=== PATIENT | male | born 1945 | race Caucasian/White ===

== ENCOUNTER 2024-10-02 15:17 | Observation (INO) ==
[2024-10-02 15:51] LABS: Hematocrit (blood only) 40.7 % (42.0-52.0); Hemoglobin 14.3 g/dl (14.0-18.0); Immature Granulocytes # (auto) 0.02 K/uL (0.01-0.20); Immature Granulocytes % (auto) 0.2 %; Mean Corpuscular Hemoglobin 32.3 pg (25.0-34.0); Mean Corpuscular Volume 91.9 fL (80.0-100.0); Platelet Count 168 K/uL (130-400); RDW Standard Deviation 46.4 fL (36.4-46.3); Red Blood Count 4.43 M/uL (4.70-6.10); White Blood Count 8.83 K/ul (4.8-10.8)
--- NOTE | 2024-10-02 15:55 | Emergency Department Note ---
Impression & Plan Hypoxia, Fall, SOB (shortness of breath), Pneumonia, Chest wall contusion, Fracture of thoracic spine ED Provider Note NAME: WINIFRED CAREY AGE: 78 SEX: M : 1945 ARRIVES VIA: Walk-In INFORMANT: [Patient] ED PROVIDER(S): [Wisam Marshall MD] CHIEF COMPLAINT: Short of breath HISTORY OF PRESENT ILLNESS: The patient is a 78-year-old male who states that he fell off a 3-step stepstool onto his right side 2 days ago. He was seen in the ED and plain rib x-rays were unremarkable. Patient has been using some pain pills as prescribed. He states that he has noticed a lot of pain in the right ribs and also the mid upper back. In the last 24 hours, he has noted some shortness of breath and chills and maybe a low-grade fever. There has been no cough, no stuffy nose, he does urinate frequently, no burning with urination. He does not have any abdominal pain. He has not noticed any rash. As he was not feeling better, as he was feeling a bit short of breath, he presents for evaluation. Of note, he is not on blood thinning agents. PMHx/PSHx/Social Hx: See Below PHYSICAL EXAM: Primary Survey Airway: Intact Breathing: Breath sounds equal bilaterally. No respiratory distress Circulation: Skin warm, capillary refill less than 2 seconds Disability: Pupils equal and reactive to light Motor Function: Moves all extremities. Sensory: No deficits Secondary Survey GEN: Well developed and well-nourished HEAD: Normocephalic, atraumatic EYES: Pupils round and reactive to light, conjunctiva clear, extraocular movements intact ENT: No fluid in external acoustic canals, nares patent, oropharynx clear NECK: Midline trachea, no cervical spine tenderness HEART: Regular rate and rhythm LUNGS: Clear to auscultation bilaterally but diminished bilaterally. CHEST: Tender to the right lateral chest wall, no contusion or crepitus. ABD: No contusions, soft, non-tender, no distention PELVIS: Stable to rock BACK: No step offs or deformities, T-L spine non tender EXT: Moving all extremities well, no gross deformities NEURO: No focal motor deficits, no sensory deficits DIFFERENTIAL DIAGNOSIS: Bacteremia or sepsis, pneumonia, UTI, rib fracture, thoracic or lumbar spine fracture, among others. EMERGENCY DEPARTMENT PROCEDURES: C-spine clinically cleared at the time of my initial assessment, 1544. MEDICAL DECISION MAKING: There is no leukocytosis or concerning anemia. There is a normal platelet count. No coagulopathy. No renal failure or significant electrolyte abnormality. Lactic acid level is not elevated making sepsis less likely. There is no concerning liver enzyme elevation. ECG shows a sinus rhythm, no ischemia. Cardiac enzyme testing x 1 is not consistent with acute cardiac injury. Urinalysis shows some dehydration, no infection. COVID, influenza and RSV test were negative. Chest x-ray shows some potential atelectasis or pneumonia at both bases. Chest CT does not show any rib fracture. There was no pneumothorax. There was a osteophyte fracture of T9. There was congestion at both bases of the lungs. Abdominal and pelvis CT did not show any acute intra- abdominal traumatic process. Thoracic and lumbar spine CTs showed the same T9 osteophyte fracture. On exam, the patient seemed fatigued. He was febrile. Eventually, his O2 saturation dropped to below 90%, he required O2 supplementation. Patient received IV saline for hydration. He was given IV Tylenol for his fever and for pain. He was given a DuoNeb to help with his breathing. He received IV ceftriaxone as empiric antibiotic coverage. Given the hypoxia, given his fever, given the worsening of his condition compared to a few days ago, I do think admission is warranted. He cannot be discharged hypoxic. I did speak with the patient and case management, the on-call hospitalist was consulted. In short, I suspect the patient has early pneumonia, possibly as a complication of his chest trauma. Prior/Outside records/notes reviewed: Previous ED visit note describing his presentation, findings and plan outpatient. ECG per my interpretation: Indication was possible sepsis. The ECG shows a normal sinus rhythm with a rate of 93. There is an incomplete right bundle branch block. There is potential old inferior infarct. There is no ST elevation, no PVCs. QTc is 432. Continuous Cardiac Monitoring per my interpretation: An order was placed for continuous cardiac monitoring. The monitor shows a rate of 89 with normal sinus rhythm. Imaging/x-ray results per my interpretation: Chest x-ray shows congestion at both bases consistent with either atelectasis or pneumonia. There was no pneumothorax. No obvious acute intrathoracic traumatic process. Chronic Medical/Social conditions affecting care: Advanced age. Care/Management discussed with: Case management, the on-call hospitalist. Level of care consideration(s): After review of the information above and other included data: --I believe the patient requires escalation of care to admission DISPOSITION: Admission Past Med/Surg History Problem List (Updated 10/02/24 @ 18:10 by Wisam Marshall MD) Fracture of thoracic spine (Acute) Chest wall contusion (Acute) Pneumonia (Acute) SOB (shortness of breath) (Acute) Fall (Acute) Hypoxia (Acute) Hypoxia Coronary artery disease Fall (Acute) Rib pain on right side (Acute) GERD (gastroesophageal reflux disease) (Chronic) Medical History Chest pain Depression Myocardial infarction "S/P 3 stents in 2009, in [place] CAD is caused by exposure to agent orange in [place] " Broken ribs Separation of AC joint, type 1 Primary osteoarthritis, right shoulder No pertinent past medical history Surgical History (Updated 10/02/24 @ 18:06 by FRANKLIN Perez) H/O hernia repair S/P cataract surgery H/O knee surgery History of coronary artery stent placement Social History Smoking Status: Never smoker Preferred Language: Sami Communication Ability: Effective Feels Safe at Home: Yes Allergies Allergies Allergy/AdvReac Type Severity Reaction Status Date / Time tramadol AdvReac Intermediate DIARHHEA Verified 02/19/15 12:01 morphine AdvReac Unknown HALLUCINATI Verified 02/19/15 12:01 ONS Home Meds Home Medications Medication Instructions Recorded Confirmed ASPIRIN (ASPIRIN 81) 81 mg PO DAILY ##0 02/19/15 COENZYME Q10 (UBIDECARENONE) 1 cap PO DAILY ##0 02/19/15 (CO-ENZYME Q10) Citalopram (Citalopram 20 mg PO DAILY ##0 02/19/15 Hydrobromide) Multiple Vitamin (Multi Vitamin 1 tab PO DAILY ##0 02/19/15 Daily) OMEGA-3 FATTY ACIDS (FISH OIL) 1 cap PO DAILY ##0 02/19/15 PRAVASTATIN SODIUM (PRAVACHOL) 20 mg PO DAILY #0 tabs 02/19/15 Previous Rx's Medication Instructions Recorded Lactobacillus Acidophilus 1 tab PO TIDM 90 days #270 tabs 02/20/15 (Floranex) OMEPRAZOLE 40 mg PO BID 90 days #90 tabs 02/20/15 Results & Data (ED) Vital Signs Vital Signs - 24 hr 10/02/24 15:21 10/02/24 15:44 10/02/24 15:44 Temperature 37.7 C H Temperature Source Skin Pulse Rate 107 H 95 H Pulse Rhythm Regular Respiratory Rate 20 16 Respiratory Effort / Characteristics Non-Labored Spontaneous Respiratory Depth Normal Respiratory Pattern Regular Blood Pressure 124/71 Blood Pressure Mean 88 Blood Pressure Position Sitting Pulse Oximetry 94 93 93 Oxygen Delivery Method Room Air Room Air Room Air Oxygen Flow Rate 0 Sepsis Recent Fever Within 48 Hours No Sepsis New/Unexplained Change in Mental Status N/A Sepsis Action Taken by Nursing No Action Required Oxygen Flow Rate - Titration Pulse Oximetry Post Tiitration 10/02/24 16:17 10/02/24 17:13 10/02/24 17:22 Temperature Temperature Source Pulse Rate 89 83 Pulse Rhythm Respiratory Rate 16 Respiratory Effort / Characteristics Respiratory Depth Respiratory Pattern Blood Pressure 142/67 H Blood Pressure Mean 92 Blood Pressure Position Pulse Oximetry 92 88 L Oxygen Delivery Method Room Air Room Air Oxygen Flow Rate 0 Sepsis Recent Fever Within 48 Hours Sepsis New/Unexplained Change in Mental Status Sepsis Action Taken by Nursing Oxygen Flow Rate - Titration 2 Pulse Oximetry Post Tiitration 93 10/02/24 17:27 Temperature Temperature Source Pulse Rate 81 Pulse Rhythm Respiratory Rate 18 Respiratory Effort / Characteristics Respiratory Depth Respiratory Pattern Blood Pressure 123/67 Blood Pressure Mean 85 Blood Pressure Position Pulse Oximetry 92 Oxygen Delivery Method Nasal Cannula Oxygen Flow Rate 2 Sepsis Recent Fever Within 48 Hours Sepsis New/Unexplained Change in Mental Status Sepsis Action Taken by Nursing Oxygen Flow Rate - Titration Pulse Oximetry Post Tiitration Home Medications Current Medication List: was personally reviewed by me Laboratory Data Attestation: I reviewed the patient's lab results. 10/02/24 15:38 10/02/24 15:38 Lab Results 10/02/24 10/02/24 10/02/24 Range/Units 15:38 15:55 16:10 WBC 8.83 (4.8-10.8) K/ul RBC 4.43 L (4.70-6.10) M/uL Hgb 14.3 (14.0-18.0) g/dl Hct 40.7 L (42.0-52.0) % MCV 91.9 (80.0-100.0) fL MCH 32.3 (25.0-34.0) pg MCHC 35.1 (32.0-36.0) g/dL RDW Std Deviation 46.4 H (36.4-46.3) fL RDW Coeff of Nelida 13.6 (11.5-14.5) % Plt Count 168 (130-400) K/uL MPV 9.2 L (9.4-12.4) fL Immature Gran % (Auto) 0.2 % Neut % (Auto) 77.2 % Lymph % (Auto) 12.1 % [place] % (Auto) 6.7 % Eos % (Auto) 3.5 % Baso % (Auto) 0.3 % Neut # (Auto) 6.81 H (1.40-6.50) K/uL Lymph # (Auto) 1.07 L (1.20-3.40) K/uL [place] # (Auto) 0.59 (0.11-0.59) K/uL Eos # (Auto) 0.31 (0.00-0.50) K/uL Baso # (Auto) 0.03 (0.00-0.20) K/uL Immature Gran # (Auto) 0.02 (0.01-0.20) K/uL PT 11.3 (9.0-12.0) Seconds INR 1.0 (0.9-1.1) APTT 29 (21-31) Seconds PTT Ratio 1.1 Sodium 136 (136-145) mmol/L Potassium 3.9 (3.5-5.1) mmol/L Chloride 104 (98-107) mmol/L Carbon Dioxide 23 (21-32) mmol/L Anion Gap 9 (3-11) BUN 20 (6-23) mg/dl Creatinine 0.99 (0.6-1.4) mg/dl Est Cr Clr Drug Dosing 64.5 ml/min eGFR 78.46 BUN/Creatinine Ratio 20.2 H (10-20) Glucose 110 H (70-99(Fasting)) mg/dl Lactate 1.5 (0.4-2.0) mmol/L Calcium 9.0 (8.6-10.3) mg/dl Magnesium 2.0 (1.7-2.4) mg/dl Total Bilirubin 1.1 H (0.2-1.0) mg/dl Direct Bilirubin 0.2 (0-0.2) mg/dl AST 20 (13-39) U/L ALT 14 (7-52) U/L Alkaline Phosphatase 67 (34-104) U/L Troponin I High Sens 10.2 (0-20) pg/ml Total Protein 7.2 (6.0-8.3) gm/dl Albumin 4.2 (3.4-5.0) gm/dl Procalcitonin 0.07 (0-0.5) ng/ml Urine Color Urine Appearance (Clear) Urine pH (4.5-7.5) Ur Specific [place] (1.000-1.030) Urine Protein (Negative) Urine Glucose (UA) (Negative) Urine Ketones (Negative) Urine Blood (Negative) Urine Nitrite (Negative) Urine Bilirubin (Negative) Urine Urobilinogen (Negative) Ur Leukocyte Esterase (Negative) Urine Comment SARS-CoV-2 (PCR) NEGATIVE (Negative) Influenza Type A (PCR) Negative (Neg) Influenza Type B (PCR) Negative (Neg) RSV (RT-PCR) Negative (Neg) 10/02/24 Range/Units 17:30 WBC (4.8-10.8) K/ul RBC (4.70-6.10) M/uL Hgb (14.0-18.0) g/dl Hct (42.0-52.0) % MCV (80.0-100.0) fL MCH (25.0-34.0) pg MCHC (32.0-36.0) g/dL RDW Std Deviation (36.4-46.3) fL RDW Coeff of Nelida (11.5-14.5) % Plt Count (130-400) K/uL MPV (9.4-12.4) fL Immature Gran % (Auto) % Neut % (Auto) % Lymph % (Auto) % [place] % (Auto) % Eos % (Auto) % Baso % (Auto) % Neut # (Auto) (1.40-6.50) K/uL Lymph # (Auto) (1.20-3.40) K/uL [place] # (Auto) (0.11-0.59) K/uL Eos # (Auto) (0.00-0.50) K/uL Baso # (Auto) (0.00-0.20) K/uL Immature Gran # (Auto) (0.01-0.20) K/uL PT (9.0-12.0) Seconds INR (0.9-1.1) APTT (21-31) Seconds PTT Ratio Sodium (136-145) mmol/L Potassium (3.5-5.1) mmol/L Chloride (98-107) mmol/L Carbon Dioxide (21-32) mmol/L Anion Gap (3-11) BUN (6-23) mg/dl Creatinine (0.6-1.4) mg/dl Est Cr Clr Drug Dosing ml/min eGFR BUN/Creatinine Ratio (10-20) Glucose (70-99(Fasting)) mg/dl Lactate (0.4-2.0) mmol/L Calcium (8.6-10.3) mg/dl Magnesium (1.7-2.4) mg/dl Total Bilirubin (0.2-1.0) mg/dl Direct Bilirubin (0-0.2) mg/dl AST (13-39) U/L ALT (7-52) U/L Alkaline Phosphatase (34-104) U/L Troponin I High Sens (0-20) pg/ml Total Protein (6.0-8.3) gm/dl Albumin (3.4-5.0) gm/dl Procalcitonin (0-0.5) ng/ml Urine Color Dark Yellow Urine Appearance Clear (Clear) Urine pH 5.0 (4.5-7.5) Ur Specific [place] 1.035 H (1.000-1.030) Urine Protein Negative (Negative) Urine Glucose (UA) Negative (Negative) Urine Ketones 1+ H (Negative) Urine Blood Negative (Negative) Urine Nitrite Negative (Negative) Urine Bilirubin Negative (Negative) Urine Urobilinogen Negative (Negative) Ur Leukocyte Esterase Negative (Negative) Urine Comment SARS-CoV-2 (PCR) (Negative) Influenza Type A (PCR) (Neg) Influenza Type B (PCR) (Neg) RSV (RT-PCR) (Neg) Administered Medications Ceftriaxone Sodium (Rocephin) 2,000 mg in 50 mls @ 100 mls/hr IV NOW STA Stop: 10/02/24 18:06 Last Admin: 10/02/24 17:48 Dose: 100 mls/hr Documented By: ARS Discontinued Medications Albuterol (Albut/Ipratrop 3mg/0.5mg Neb 3 Ml Vial) 3 ml NEB NOW STA; Protocol Stop: 10/02/24 17:38 Last Admin: 10/02/24 17:47 Dose: 3 ml Documented By: ARS Acetaminophen (Ofirmev) 1,000 mg in 100 mls @ 400 mls/hr IV NOW STA Stop: 10/02/24 16:03 Last Infusion: 10/02/24 16:37 Dose: Infused Documented By: Admin: 10/02/24 16:11 Dose: 400 mls/hr Documented By: ANT Sodium Chloride (Nss) 1,000 mls @ 999 mls/hr IV .Q1H1M ONE Stop: 10/02/24 16:49 Last Infusion: 10/02/24 17:23 Dose: Infused Documented By: Admin: 10/02/24 16:11 Dose: 999 mls/hr Documented By: ANT Ioversol (Optiray 320 100ml) 93 ml IV ONCE ONE Stop: 10/02/24 16:50 Last Admin: 10/02/24 16:51 Dose: 93 ml Documented By: EAB Imaging Data Radiologist's Impression: Chest X-Ray 10/02/24 15:38 Chest radiograph, one view History: Sepsis Comparison: 02/20/2015 Findings: Single AP view of the chest performed. No focal consolidation or pleural effusion. No pneumothorax. The cardiomediastinal silhouette is within normal limits. Normal pulmonary vascularity. No evidence for lymphadenopathy. No visualized bony or soft tissue abnormality. Impression: Normal chest radiograph Electronically signed by Joel Sam 10-02-2024 4:36 PM Abdomen/Pelvis CT 10/02/24 15:49 EXAMINATION: CT of the chest, abdomen and pelvis, and the thoracic and lumbar spine performed after the administration of IV contrast TECHNIQUE: Helical CT images from the lung apices through the symphysis pubis were obtained with contrast. Coronal and sagittal reformatted images were generated at a workstation for further assessment. Dose reduction techniques were achieved by using automatic exposure control and/or adjustment of mA and/or kV according to patient size and/or use of iterative reconstruction technique. COMPARISON: None HISTORY: Trauma FINDINGS: Lines and tubes: None Mediastinum/Neck Base: No thyroid nodules. Central tracheobronchial tree is patent. Heart size is normal. No pericardial effusion. Normal thoracic vasculature. No thoracic lymphadenopathy. Lungs: No consolidation. No pleural effusion or pneumothorax. Mild basilar and peripheral interstitial changes, without honeycombing, suggesting interstitial lung disease. Liver: No suspicious liver lesions. Portal veins appear patent. Gallbladder: Small layering calcified gallstones. No evidence of acute cholecystitis. Spleen: Normal size. Pancreas: No suspicious pancreatic lesions. The pancreatic duct is not dilated. Adrenal glands: No adrenal nodules. Kidneys: No hydronephrosis or obstructing renal stones. Bladder / Pelvic organs: The prostate gland is enlarged, with a transverse diameter of 6.7 cm.. Bowel: No bowel obstruction. No abnormal bowel wall thickening. The appendix is not definitely seen. Left colonic diverticulosis without diverticulitis. The cecum appears displaced into the left mid abdomen, suggesting a mobile cecum. Lymph nodes: No retroperitoneal, mesenteric, or pelvic lymphadenopathy. Peritoneum / Retroperitoneum: No free fluid or air within the abdomen. Vessels: No infrarenal aortic aneurysm. Moderate aortoiliac calcification. Bones and soft tissues: Degenerative changes of the spine. At the T9 level, there is a thin, horizontally oriented fracture line extending through the anterior vertebral body cortex, involving a partially circumferential osteophyte. No visualized further extension into the mid or posterior vertebral body. No fracture or traumatic subluxation of the lumbar spine. There are prominent anterior bridging osteophytes. Severe L5-S1 degenerative disc height loss. IMPRESSION: 1. A thin fracture line extends horizontally across a partially circumferential osteophyte of the T9 vertebral body. There is no extension into the mid or posterior vertebral body. 2. No other acute finding the chest, abdomen or pelvis, or of the lumbar spine. 3. 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 Electronically signed by Joel Sam 10-02-2024 5:[address] 10/02/24 15:49 EXAMINATION: CT of the chest, abdomen and pelvis, and the thoracic and lumbar spine performed after the administration of IV contrast TECHNIQUE: Helical CT images from the lung apices through the symphysis pubis were obtained with contrast. Coronal and sagittal reformatted images were generated at a workstation for further assessment. Dose reduction techniques were achieved by using automatic exposure control and/or adjustment of mA and/or kV according to patient size and/or use of iterative reconstruction technique. COMPARISON: None HISTORY: Trauma FINDINGS: Lines and tubes: None Mediastinum/Neck Base: No thyroid nodules. Central tracheobronchial tree is patent. Heart size is normal. No pericardial effusion. Normal thoracic vasculature. No thoracic lymphadenopathy. Lungs: No consolidation. No pleural effusion or pneumothorax. Mild basilar and peripheral interstitial changes, without honeycombing, suggesting interstitial lung disease. Liver: No suspicious liver lesions. Portal veins appear patent. Gallbladder: Small layering calcified gallstones. No evidence of acute cholecystitis. Spleen: Normal size. Pancreas: No suspicious pancreatic lesions. The pancreatic duct is not dilated. Adrenal glands: No adrenal nodules. Kidneys: No hydronephrosis or obstructing renal stones. Bladder / Pelvic organs: The prostate gland is enlarged, with a transverse diameter of 6.7 cm.. Bowel: No bowel obstruction. No abnormal bowel wall thickening. The appendix is not definitely seen. Left colonic diverticulosis without diverticulitis. The cecum appears displaced into the left mid abdomen, suggesting a mobile cecum. Lymph nodes: No retroperitoneal, mesenteric, or pelvic lymphadenopathy. Peritoneum / Retroperitoneum: No free fluid or air within the abdomen. Vessels: No infrarenal aortic aneurysm. Moderate aortoiliac calcification. Bones and soft tissues: Degenerative changes of the spine. At the T9 level, there is a thin, horizontally oriented fracture line extending through the anterior vertebral body cortex, involving a partially circumferential osteophyte. No visualized further extension into the mid or posterior vertebral body. No fracture or traumatic subluxation of the lumbar spine. There are prominent anterior bridging osteophytes. Severe L5-S1 degenerative disc height loss. IMPRESSION: 1. A thin fracture line extends horizontally across a partially circumferential osteophyte of the T9 vertebral body. There is no extension into the mid or posterior vertebral body. 2. No other acute finding the chest, abdomen or pelvis, or of the lumbar spine. 3. 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 Electronically signed by Joel Sam 10-02-2024 5:[address] 10/02/24 15:49 EXAMINATION: CT of the chest, abdomen and pelvis, and the thoracic and lumbar spine performed after the administration of IV contrast TECHNIQUE: Helical CT images from the lung apices through the symphysis pubis were obtained with contrast. Coronal and sagittal reformatted images were generated at a workstation for further assessment. Dose reduction techniques were achieved by using automatic exposure control and/or adjustment of mA and/or kV according to patient size and/or use of iterative reconstruction technique. COMPARISON: None HISTORY: Trauma FINDINGS: Lines and tubes: None Mediastinum/Neck Base: No thyroid nodules. Central tracheobronchial tree is patent. Heart size is normal. No pericardial effusion. Normal thoracic vasculature. No thoracic lymphadenopathy. Lungs: No consolidation. No pleural effusion or pneumothorax. Mild basilar and peripheral interstitial changes, without honeycombing, suggesting interstitial lung disease. Liver: No suspicious liver lesions. Portal veins appear patent. Gallbladder: Small layering calcified gallstones. No evidence of acute cholecystitis. Spleen: Normal size. Pancreas: No suspicious pancreatic lesions. The pancreatic duct is not dilated. Adrenal glands: No adrenal nodules. Kidneys: No hydronephrosis or obstructing renal stones. Bladder / Pelvic organs: The prostate gland is enlarged, with a transverse diameter of 6.7 cm.. Bowel: No bowel obstruction. No abnormal bowel wall thickening. The appendix is not definitely seen. Left colonic diverticulosis without diverticulitis. The cecum appears displaced into the left mid abdomen, suggesting a mobile cecum. Lymph nodes: No retroperitoneal, mesenteric, or pelvic lymphadenopathy. Peritoneum / Retroperitoneum: No free fluid or air within the abdomen. Vessels: No infrarenal aortic aneurysm. Moderate aortoiliac calcification. Bones and soft tissues: Degenerative changes of the spine. At the T9 level, there is a thin, horizontally oriented fracture line extending through the anterior vertebral body cortex, involving a partially circumferential osteophyte. No visualized further extension into the mid or posterior vertebral body. No fracture or traumatic subluxation of the lumbar spine. There are prominent anterior bridging osteophytes. Severe L5-S1 degenerative disc height loss. IMPRESSION: 1. A thin fracture line extends horizontally across a partially circumferential osteophyte of the T9 vertebral body. There is no extension into the mid or posterior vertebral body. 2. No other acute finding the chest, abdomen or pelvis, or of the lumbar spine. 3. 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 Electronically signed by Joel Sam 10-02-2024 5:[address] 10/02/24 15:49 EXAMINATION: CT of the chest, abdomen and pelvis, and the thoracic and lumbar spine performed after the administration of IV contrast TECHNIQUE: Helical CT images from the lung apices through the symphysis pubis were obtained with contrast. Coronal and sagittal reformatted images were generated at a workstation for further assessment. Dose reduction techniques were achieved by using automatic exposure control and/or adjustment of mA and/or kV according to patient size and/or use of iterative reconstruction technique. COMPARISON: None HISTORY: Trauma FINDINGS: Lines and tubes: None Mediastinum/Neck Base: No thyroid nodules. Central tracheobronchial tree is patent. Heart size is normal. No pericardial effusion. Normal thoracic vasculature. No thoracic lymphadenopathy. Lungs: No consolidation. No pleural effusion or pneumothorax. Mild basilar and peripheral interstitial changes, without honeycombing, suggesting interstitial lung disease. Liver: No suspicious liver lesions. Portal veins appear patent. Gallbladder: Small layering calcified gallstones. No evidence of acute cholecystitis. Spleen: Normal size. Pancreas: No suspicious pancreatic lesions. The pancreatic duct is not dilated. Adrenal glands: No adrenal nodules. Kidneys: No hydronephrosis or obstructing renal stones. Bladder / Pelvic organs: The prostate gland is enlarged, with a transverse diameter of 6.7 cm.. Bowel: No bowel obstruction. No abnormal bowel wall thickening. The appendix is not definitely seen. Left colonic diverticulosis without diverticulitis. The cecum appears displaced into the left mid abdomen, suggesting a mobile cecum. Lymph nodes: No retroperitoneal, mesenteric, or pelvic lymphadenopathy. Peritoneum / Retroperitoneum: No free fluid or air within the abdomen. Vessels: No infrarenal aortic aneurysm. Moderate aortoiliac calcification. Bones and soft tissues: Degenerative changes of the spine. At the T9 level, there is a thin, horizontally oriented fracture line extending through the anterior vertebral body cortex, involving a partially circumferential osteophyte. No visualized further extension into the mid or posterior vertebral body. No fracture or traumatic subluxation of the lumbar spine. There are prominent anterior bridging osteophytes. Severe L5-S1 degenerative disc height loss. IMPRESSION: 1. A thin fracture line extends horizontally across a partially circumferential osteophyte of the T9 vertebral body. There is no extension into the mid or posterior vertebral body. 2. No other acute finding the chest, abdomen or pelvis, or of the lumbar spine. 3. 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 Electronically signed by Joel Sam 10-02-2024 5:16 PM Discharge Plan Visit Data Chief Complaint: Shortness of Breath/Dyspnea Stated Complaint: RETURN VISIT, SOB, NOT FEELING BETTER SO CAME BACK ED Provider: Wisam Marshall Discharge Problem: Hypoxia, Fall, SOB (shortness of breath), Pneumonia, Chest wall contusion, Fracture of thoracic spine Patient Disposition: Admitted As Inpatient Condition: Fair Forms Stand Alone Forms: [facility] Referrals Referrals: Lisbeth Villegas ARNP [Primary Care Provider] - Discharge Problem: Fall Qualifiers: Encounter type: initial encounter Qualified Code(s): W19.XXXA - Unspecified fall, initial encounter Pneumonia Qualifiers: Pneumonia type: due to unspecified organism Laterality: unspecified laterality Lung location: unspecified part of lung Qualified Code(s): J18.9 - Pneumonia, unspecified organism Chest wall contusion Qualifiers: Encounter type: subsequent encounter Laterality: right Qualified Code(s): S 20.211D - Contusion of right front wall of thorax, subsequent encounter Fracture of thoracic spine Qualifiers: Encounter type: subsequent encounter Thoracic vertebra fracture level: T9 F racture type: closed Fracture morphology: unspecified fracture morphology F racture healing: with routine healing Qualified Code(s): S22.079D - Unspecified fracture of T9-T10 vertebra, subsequent encounter for fracture with routine healing
[2024-10-02 16:10] LABS: Alanine Aminotransferase 14.0 U/L (7-52); Alkaline Phosphatase 67.0 U/L (34-104); Anion Gap 9.0 (3-11); Bilirubin,Total 1.1 mg/dl (0.2-1.0); Blood Urea Nitrogen 20.0 mg/dl (6-23); Calcium 9.0 mg/dl (8.6-10.3); Carbon Dioxide 23.0 mmol/L (21-32); Chloride 104.0 mmol/L (98-107); Creatinine Clr Calc Pharmacy 64.5 ml/min; Glucose 110.0 mg/dl (70-99(Fasting)); Magnesium 2.0 mg/dl (1.7-2.4); Potassium 3.9 mmol/L (3.5-5.1); Sodium 136.0 mmol/L (136-145); Total Protein 7.2 gm/dl (6.0-8.3)
[2024-10-02] MEDS: SODIUM CHLORIDE 0.9% 1,000 ML IV ONE (16:11)
[2024-10-02] MEDS: ACETAMINOPHEN 1,000 MG/100 ML VIAL IV STA (16:11)
--- NOTE | 2024-10-02 16:36 | XRay Report ---
Chest radiograph, one view History: Sepsis Comparison: 02/20/2015 Findings: Single AP view of the chest performed. No focal consolidation or pleural effusion. No pneumothorax. The cardiomediastinal silhouette is within normal limits. Normal pulmonary vascularity. No evidence for lymphadenopathy. No visualized bony or soft tissue abnormality. Impression: Normal chest radiograph Electronically signed by Joel Sam 10-02-2024 4:36 PM
[2024-10-02 16:50] LABS: INR 1.0 (0.9-1.1); Partial Thromboplastin Time 29 Seconds (21-31); Prothrombin Time 11.3 Seconds (9.0-12.0)
[2024-10-02] MEDS: OPTIRAY 320 100ml IV ONE (16:51)
[2024-10-02 16:55] LABS: Influenza A virus by PCR Negative (Neg); Influenza B virus by PCR Negative (Neg); SARS CoV2 RNA(COVID-19) Ceph NEGATIVE (Negative)
--- NOTE | 2024-10-02 17:17 | CT Scan Report ---
EXAMINATION: CT of the chest, abdomen and pelvis, and the thoracic and lumbar spine performed after the administration of IV contrast TECHNIQUE: Helical CT images from the lung apices through the symphysis pubis were obtained with contrast. Coronal and sagittal reformatted images were generated at a workstation for further assessment. Dose reduction techniques were achieved by using automatic exposure control and/or adjustment of mA and/or kV according to patient size and/or use of iterative reconstruction technique. COMPARISON: None HISTORY: Trauma FINDINGS: Lines and tubes: None Mediastinum/Neck Base: No thyroid nodules. Central tracheobronchial tree is patent. Heart size is normal. No pericardial effusion. Normal thoracic vasculature. No thoracic lymphadenopathy. Lungs: No consolidation. No pleural effusion or pneumothorax. Mild basilar and peripheral interstitial changes, without honeycombing, suggesting interstitial lung disease. Liver: No suspicious liver lesions. Portal veins appear patent. Gallbladder: Small layering calcified gallstones. No evidence of acute cholecystitis. Spleen: Normal size. Pancreas: No suspicious pancreatic lesions. The pancreatic duct is not dilated. Adrenal glands: No adrenal nodules. Kidneys: No hydronephrosis or obstructing renal stones. Bladder / Pelvic organs: The prostate gland is enlarged, with a transverse diameter of 6.7 cm.. Bowel: No bowel obstruction. No abnormal bowel wall thickening. The appendix is not definitely seen. Left colonic diverticulosis without diverticulitis. The cecum appears displaced into the left mid abdomen, suggesting a mobile cecum. Lymph nodes: No retroperitoneal, mesenteric, or pelvic lymphadenopathy. Peritoneum / Retroperitoneum: No free fluid or air within the abdomen. Vessels: No infrarenal aortic aneurysm. Moderate aortoiliac calcification. Bones and soft tissues: Degenerative changes of the spine. At the T9 level, there is a thin, horizontally oriented fracture line extending through the anterior vertebral body cortex, involving a partially circumferential osteophyte. No visualized further extension into the mid or posterior vertebral body. No fracture or traumatic subluxation of the lumbar spine. There are prominent anterior bridging osteophytes. Severe L5-S1 degenerative disc height loss. IMPRESSION: 1. A thin fracture line extends horizontally across a partially circumferential osteophyte of the T9 vertebral body. There is no extension into the mid or posterior vertebral body. 2. No other acute finding the chest, abdomen or pelvis, or of the lumbar spine. 3. 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 Electronically signed by Joel Sam 10-02-2024 5:16 PM
[2024-10-02 17:46] LABS: Appearance Urine Clear (Clear); Glucose Urine UA Negative (Negative)
[2024-10-02] MEDS: ALBUT/IPRATROP 3MG/0.5MG NEB 3 ML VIAL NEB STA (17:47)
[2024-10-02] MEDS: cefTRIAXone SODIUM 2,000 MG/50 ML BAG IV STA (17:48)
--- NOTE | 2024-10-02 18:00 | History & Physical Report ---
Date of Service October 02, 2024 Assessment & Plan (1) Hypoxia: (2) SOB (shortness of breath): (3) Fall: (4) Fracture of thoracic spine: (5) Rib pain on right side: (6) Coronary artery disease: (7) GERD (gastroesophageal reflux disease): Plan 78 year old male with PMH significant for hyperlipidemia, CAD s/p stent x3 (2015), and osteoarthritis who presented to the ED on 10/02/2024 with fevers and SOB. Hypoxia SOB Possible PNA Patient presented with fevers and SOB Hypoxic to 88% on RA in ED No leukocytosis, lactate WNL, procalcitonin negative UA unremarkable Blood cultures pending CXR, chest CT, abdominal CT without acute processes but noting interstitial lung disease Add D dimer, BNP, lyme screen for further work up of SOB and fevers Treat for CAP with cefepime and doxycycline Duonebs PRN, ISP, flutter valve Fall Rib pain on right side Fracture of thoracic spine Thoracic spine CT revealed A thin fracture line extends horizontally across a partially circumferential osteophyte of the T9 vertebral body. Consult orthospine surgery: appreciate recs Pain control with scheduled tylenol, lidocaine patch PRN, oxycodone PRN CAD s/p stent Continue baby aspirin and statin GERD Continue omeprazole and Mylanta PRN DVT Prophylaxis: SQ Heparin Code Status: FULL CODE - As per discussion at bedside with the patient. PCP: Lisbeth Villegas Disposition: admit to [facility] Patient seen in collaboration with Dr Ambriz. Please see addendum. I spent a total of 60 minutes coordinating, documenting and providing care for this patient excluding time spent in the performance of separately billed services or time spent by another provider/QHP. History of Present Illness Chief Complaint: fevers, SOB Primary Care Provider: SUMIT Sainz 78 year old male with PMH significant for hyperlipidemia, CAD s/p stent x3 (2016), and osteoarthritis who presented to the ED on 10/02/2024 with fevers and SOB. He reports that he fell off a step-stool two days ago and landed on marble on his right side. He was evaluated in our ED and had x-rays which were negative and he was discharged home on pain medicine. Yesterday, he developed SOB where he was winded after going up one flight of steps, which is unusual for him. He was also very chilled overnight and slept in a sweatshirt and sweatpants. He did not take his temperature. He was concerned about his SOB, which is why he presented to the ED today. He denies cough, cold symptoms, chest pain, abdominal pain, N/V/D, weakness and fatigue. Notes he did get a bite on his back when he was walking his dog the other day. Denies sick contacts. Reports he is still having a lot of rib and back pain after the fall. Rates 4/10 at rest and higher with movements. Allergies Allergy/AdvReac Type Severity Reaction Status Date / Time tramadol AdvReac Intermediate DIARHHEA Verified 10/02/24 18:00 morphine AdvReac Unknown HALLUCINATI Verified 10/02/24 18:00 ONS Home Medications Medication Instructions Recorded Confirmed Type aluminum-mag hydroxide-simethicone 10 ml PO UD PRN Acid Reflux 10/02/24 10/02/24 History 200 mg-200 mg-20 mg/5 mL oral susp aspirin 81 mg tablet,delayed 81 mg PO QAM 10/02/24 10/02/24 History release omeprazole 20 mg tablet,delayed 20 mg PO QAM 10/02/24 10/02/24 History release rosuvastatin 5 mg tablet 5 mg PO QAM 10/02/24 10/02/24 History Past Med/Surg History Problem List Fracture of thoracic spine (Acute) Chest wall contusion (Acute) Pneumonia (Acute) SOB (shortness of breath) (Acute) Fall (Acute) Hypoxia (Acute) Hypoxia Coronary artery disease Fall (Acute) Rib pain on right side (Acute) GERD (gastroesophageal reflux disease) (Chronic) Medical History Chest pain Depression Myocardial infarction "S/P 3 stents in 2010, in [place] CAD is caused by exposure to agent orange in [place] " Broken ribs Separation of AC joint, type 1 Primary osteoarthritis, right shoulder No pertinent past medical history Surgical History H/O hernia repair S/P cataract surgery H/O knee surgery History of coronary artery stent placement Social History (Updated 10/02/24 @ 19:08 by FRANKLIN Perez) Smoking Status: Never smoker Hx Alcohol Use: No Hx Substance Use: No Preferred Language: Ukrainian Communication Ability: Effective Feels Safe at Home: Yes Assistive Devices: None Review of Systems Review of Systems: All systems reviewed & are unremarkable except as noted in HPI & below Physical Exam Physical Exam: General/Psych: WD/WN, sitting up in bed, NAD, conversing easily, on 2L NC Head: normocephalic, atraumatic Eyes: normal inspection, PERRL, conjunctivae pink ENT: external ear and nose normal, oropharynx normal Neck: normal visual inspection, trachea midline Respiratory: normal respiratory effort, lungs clear to auscultation, rales in bilateral bases, no accessory muscle use Cardiovascular: regular rate and rhythm, no murmur/rub/gallop, no JVD Extremities: no cyanosis or clubbing, normal peripheral pulses, no BLE edema Abdomen/GI: normal bowel sounds, soft, nontender Neurologic/MSK: A+Ox3, motor strength 5/5, moves all extremities Skin: no rashes, normal color, warm and dry Results & Data Results & Data Vital Signs (Past 12 Hours) Vital Signs Temp Pulse Resp BP Pulse Ox O2 Del Method O2 Flow Rate 10/02/24 17:27 81 18 123/67 92 Nasal Cannula 2 10/02/24 17:22 88 L Room Air 0 10/02/24 17:13 83 10/02/24 16:17 89 16 142/67 H 92 Room Air 10/02/24 15:44 95 H 16 93 Room Air 10/02/24 15:44 93 Room Air 0 10/02/24 15:21 37.7 C H 107 H 20 124/71 94 Room Air Laboratory Results Short CBC 10/02/24 Range/Units 15:38 WBC 8.83 (4.8-10.8) K/ul Hgb 14.3 (14.0-18.0) g/dl Hct 40.7 L (42.0-52.0) % Plt Count 168 (130-400) K/uL BMP 10/02/24 15:38 Sodium 136 Potassium 3.9 Chloride 104 Carbon Dioxide 23 BUN 20 Creatinine 0.99 Glucose 110 H Calcium 9.0 Liver Function 10/02/24 Range/Units 15:38 Total Bilirubin 1.1 H (0.2-1.0) mg/dl Direct Bilirubin 0.2 (0-0.2) mg/dl AST 20 (13-39) U/L ALT 14 (7-52) U/L Alkaline Phosphatase 67 (34-104) U/L Albumin 4.2 (3.4-5.0) gm/dl Urine 10/02/24 Range/Units 17:30 Urine Color Dark Yellow Urine Appearance Clear (Clear) Urine pH 5.0 (4.5-7.5) Ur Specific [place] 1.035 H (1.000-1.030) Urine Protein Negative (Negative) Urine Glucose (UA) Negative (Negative) I have independently reviewed and interpreted patient's admitting labs including CBC, CMP, PTT, PT/INR, mag, troponin, lactate, procalcitonin, UA. Diagnostic Findings Chest X-Ray 10/02/24 15:38 Chest radiograph, one view History: Sepsis Comparison: 02/20/2015 Findings: Single AP view of the chest performed. No focal consolidation or pleural effusion. No pneumothorax. The cardiomediastinal silhouette is within normal limits. Normal pulmonary vascularity. No evidence for lymphadenopathy. No visualized bony or soft tissue abnormality. Impression: Normal chest radiograph Electronically signed by Joel Sam 10-02-2024 4:36 PM Abdomen/Pelvis CT 10/02/24 15:49 EXAMINATION: CT of the chest, abdomen and pelvis, and the thoracic and lumbar spine performed after the administration of IV contrast TECHNIQUE: Helical CT images from the lung apices through the symphysis pubis were obtained with contrast. Coronal and sagittal reformatted images were generated at a workstation for further assessment. Dose reduction techniques were achieved by using automatic exposure control and/or adjustment of mA and/or kV according to patient size and/or use of iterative reconstruction technique. COMPARISON: None HISTORY: Trauma FINDINGS: Lines and tubes: None Mediastinum/Neck Base: No thyroid nodules. Central tracheobronchial tree is patent. Heart size is normal. No pericardial effusion. Normal thoracic vasculature. No thoracic lymphadenopathy. Lungs: No consolidation. No pleural effusion or pneumothorax. Mild basilar and peripheral interstitial changes, without honeycombing, suggesting interstitial lung disease. Liver: No suspicious liver lesions. Portal veins appear patent. Gallbladder: Small layering calcified gallstones. No evidence of acute cholecystitis. Spleen: Normal size. Pancreas: No suspicious pancreatic lesions. The pancreatic duct is not dilated. Adrenal glands: No adrenal nodules. Kidneys: No hydronephrosis or obstructing renal stones. Bladder / Pelvic organs: The prostate gland is enlarged, with a transverse diameter of 6.7 cm.. Bowel: No bowel obstruction. No abnormal bowel wall thickening. The appendix is not definitely seen. Left colonic diverticulosis without diverticulitis. The cecum appears displaced into the left mid abdomen, suggesting a mobile cecum. Lymph nodes: No retroperitoneal, mesenteric, or pelvic lymphadenopathy. Peritoneum / Retroperitoneum: No free fluid or air within the abdomen. Vessels: No infrarenal aortic aneurysm. Moderate aortoiliac calcification. Bones and soft tissues: Degenerative changes of the spine. At the T9 level, there is a thin, horizontally oriented fracture line extending through the anterior vertebral body cortex, involving a partially circumferential osteophyte. No visualized further extension into the mid or posterior vertebral body. No fracture or traumatic subluxation of the lumbar spine. There are prominent anterior bridging osteophytes. Severe L5-S1 degenerative disc height loss. IMPRESSION: 1. A thin fracture line extends horizontally across a partially circumferential osteophyte of the T9 vertebral body. There is no extension into the mid or posterior vertebral body. 2. No other acute finding the chest, abdomen or pelvis, or of the lumbar spine. 3. 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 Electronically signed by Joel Sam 10-02-2024 5:[address] 10/02/24 15:49 EXAMINATION: CT of the chest, abdomen and pelvis, and the thoracic and lumbar spine performed after the administration of IV contrast TECHNIQUE: Helical CT images from the lung apices through the symphysis pubis were obtained with contrast. Coronal and sagittal reformatted images were generated at a workstation for further assessment. Dose reduction techniques were achieved by using automatic exposure control and/or adjustment of mA and/or kV according to patient size and/or use of iterative reconstruction technique. COMPARISON: None HISTORY: Trauma FINDINGS: Lines and tubes: None Mediastinum/Neck Base: No thyroid nodules. Central tracheobronchial tree is patent. Heart size is normal. No pericardial effusion. Normal thoracic vasculature. No thoracic lymphadenopathy. Lungs: No consolidation. No pleural effusion or pneumothorax. Mild basilar and peripheral interstitial changes, without honeycombing, suggesting interstitial lung disease. Liver: No suspicious liver lesions. Portal veins appear patent. Gallbladder: Small layering calcified gallstones. No evidence of acute cholecystitis. Spleen: Normal size. Pancreas: No suspicious pancreatic lesions. The pancreatic duct is not dilated. Adrenal glands: No adrenal nodules. Kidneys: No hydronephrosis or obstructing renal stones. Bladder / Pelvic organs: The prostate gland is enlarged, with a transverse diameter of 6.7 cm.. Bowel: No bowel obstruction. No abnormal bowel wall thickening. The appendix is not definitely seen. Left colonic diverticulosis without diverticulitis. The cecum appears displaced into the left mid abdomen, suggesting a mobile cecum. Lymph nodes: No retroperitoneal, mesenteric, or pelvic lymphadenopathy. Peritoneum / Retroperitoneum: No free fluid or air within the abdomen. Vessels: No infrarenal aortic aneurysm. Moderate aortoiliac calcification. Bones and soft tissues: Degenerative changes of the spine. At the T9 level, there is a thin, horizontally oriented fracture line extending through the anterior vertebral body cortex, involving a partially circumferential osteophyte. No visualized further extension into the mid or posterior vertebral body. No fracture or traumatic subluxation of the lumbar spine. There are prominent anterior bridging osteophytes. Severe L5-S1 degenerative disc height loss. IMPRESSION: 1. A thin fracture line extends horizontally across a partially circumferential osteophyte of the T9 vertebral body. There is no extension into the mid or posterior vertebral body. 2. No other acute finding the chest, abdomen or pelvis, or of the lumbar spine. 3. 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 Electronically signed by Joel Sam 10-02-2024 5:[address] 10/02/24 15:49 EXAMINATION: CT of the chest, abdomen and pelvis, and the thoracic and lumbar spine performed after the administration of IV contrast TECHNIQUE: Helical CT images from the lung apices through the symphysis pubis were obtained with contrast. Coronal and sagittal reformatted images were generated at a workstation for further assessment. Dose reduction techniques were achieved by using automatic exposure control and/or adjustment of mA and/or kV according to patient size and/or use of iterative reconstruction technique. COMPARISON: None HISTORY: Trauma FINDINGS: Lines and tubes: None Mediastinum/Neck Base: No thyroid nodules. Central tracheobronchial tree is patent. Heart size is normal. No pericardial effusion. Normal thoracic vasculature. No thoracic lymphadenopathy. Lungs: No consolidation. No pleural effusion or pneumothorax. Mild basilar and peripheral interstitial changes, without honeycombing, suggesting interstitial lung disease. Liver: No suspicious liver lesions. Portal veins appear patent. Gallbladder: Small layering calcified gallstones. No evidence of acute cholecystitis. Spleen: Normal size. Pancreas: No suspicious pancreatic lesions. The pancreatic duct is not dilated. Adrenal glands: No adrenal nodules. Kidneys: No hydronephrosis or obstructing renal stones. Bladder / Pelvic organs: The prostate gland is enlarged, with a transverse diameter of 6.7 cm.. Bowel: No bowel obstruction. No abnormal bowel wall thickening. The appendix is not definitely seen. Left colonic diverticulosis without diverticulitis. The cecum appears displaced into the left mid abdomen, suggesting a mobile cecum. Lymph nodes: No retroperitoneal, mesenteric, or pelvic lymphadenopathy. Peritoneum / Retroperitoneum: No free fluid or air within the abdomen. Vessels: No infrarenal aortic aneurysm. Moderate aortoiliac calcification. Bones and soft tissues: Degenerative changes of the spine. At the T9 level, there is a thin, horizontally oriented fracture line extending through the anterior vertebral body cortex, involving a partially circumferential osteophyte. No visualized further extension into the mid or posterior vertebral body. No fracture or traumatic subluxation of the lumbar spine. There are prominent anterior bridging osteophytes. Severe L5-S1 degenerative disc height loss. IMPRESSION: 1. A thin fracture line extends horizontally across a partially circumferential osteophyte of the T9 vertebral body. There is no extension into the mid or posterior vertebral body. 2. No other acute finding the chest, abdomen or pelvis, or of the lumbar spine. 3. 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 Electronically signed by Joel Sam 10-02-2024 5:[address] 10/02/24 15:49 EXAMINATION: CT of the chest, abdomen and pelvis, and the thoracic and lumbar spine performed after the administration of IV contrast TECHNIQUE: Helical CT images from the lung apices through the symphysis pubis were obtained with contrast. Coronal and sagittal reformatted images were generated at a workstation for further assessment. Dose reduction techniques were achieved by using automatic exposure control and/or adjustment of mA and/or kV according to patient size and/or use of iterative reconstruction technique. COMPARISON: None HISTORY: Trauma FINDINGS: Lines and tubes: None Mediastinum/Neck Base: No thyroid nodules. Central tracheobronchial tree is patent. Heart size is normal. No pericardial effusion. Normal thoracic vasculature. No thoracic lymphadenopathy. Lungs: No consolidation. No pleural effusion or pneumothorax. Mild basilar and peripheral interstitial changes, without honeycombing, suggesting interstitial lung disease. Liver: No suspicious liver lesions. Portal veins appear patent. Gallbladder: Small layering calcified gallstones. No evidence of acute cholecystitis. Spleen: Normal size. Pancreas: No suspicious pancreatic lesions. The pancreatic duct is not dilated. Adrenal glands: No adrenal nodules. Kidneys: No hydronephrosis or obstructing renal stones. Bladder / Pelvic organs: The prostate gland is enlarged, with a transverse diameter of 6.7 cm.. Bowel: No bowel obstruction. No abnormal bowel wall thickening. The appendix is not definitely seen. Left colonic diverticulosis without diverticulitis. The cecum appears displaced into the left mid abdomen, suggesting a mobile cecum. Lymph nodes: No retroperitoneal, mesenteric, or pelvic lymphadenopathy. Peritoneum / Retroperitoneum: No free fluid or air within the abdomen. Vessels: No infrarenal aortic aneurysm. Moderate aortoiliac calcification. Bones and soft tissues: Degenerative changes of the spine. At the T9 level, there is a thin, horizontally oriented fracture line extending through the anterior vertebral body cortex, involving a partially circumferential osteophyte. No visualized further extension into the mid or posterior vertebral body. No fracture or traumatic subluxation of the lumbar spine. There are prominent anterior bridging osteophytes. Severe L5-S1 degenerative disc height loss. IMPRESSION: 1. A thin fracture line extends horizontally across a partially circumferential osteophyte of the T9 vertebral body. There is no extension into the mid or posterior vertebral body. 2. No other acute finding the chest, abdomen or pelvis, or of the lumbar spine. 3. 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 Electronically signed by Joel Sam 10-02-2024 5:16 PM ECG Additional Comments: I have independently reviewed and interpreted patient's admitting EKG which revealed: NSR at a rate of 93bpm Code Status & VTE Plan Code Status Full Code (4) Fracture of thoracic spine Encounter type: subsequent encounter Fracture healing: with routine healing Fracture morphology: unspecified fracture morphology Fracture type: closed Thoracic vertebra fracture level: T9 Qualified Code(s): S22.079D - Unspecified fracture of T9-T10 vertebra, subsequent encounter for fracture with routine healing
--- NOTE | 2024-10-02 18:03 | Communication Note ---
Date of Service: October 02, 2024 Attending Addendum: Case reviewed with the advanced practitioner. I have personally performed a history and physical examination on the patient. I have reviewed the advanced practitioner's documentation on the date of service referenced in note, and I agree with, and take responsibility for the plan of care. please refer to her notes for full details patient seen and examined, records reviewed by myself as well on exam, patient seen resting in bed, on 2 L O2 via nasal cannula reports moderate pain on upper midback radiating to right lateral rib area no weakness/numbness reports shortness of breath, worse with movement, no cough, no pain with deep inspiration no leg pain no other symptoms VS noted and reviewed oriented x3 , not in distress, speaks in sentences with no effort nor accessory muscle use normal rate, regular rhythm, no murmurs (+) bibasilar crackles, no wheezing, good air entry bilaterally non distended, soft, nontender no bipedal edema, erythema, warmth no neuro deficits all labs, imaging noted and reviewed ASSESSMENT AND PLAN> T9 Horizontal Fracture Line s/p Fall - Tylenol scheduled - Spine Ortho consult PT/OT eval Acute Hypoxic Respiratory Failure possible Bibasilar Pneumonia possible underlying Interstitial Lung Disease, Atelectasis - Covid, Flu, RSV: negative - sputum culture: pending - CT chest: Mild basilar and peripheral predominant interstitial lung disease, without honeycombing, probable UIP pattern. - IV Cefepime + Doxy Nebs q6h PRN Incentive Spirometry, Flutter valve Pulmonology consult - check D dimer patient reports brother of PE Enlarged Prostate Moderate Aortoiliac Calcification - seen on CT abd/pelvis - PSA level ordered further outpatient work up and management other diagnoses and plan of care as per advanced practitioner's notes I spent a total of 40 minutes coordinating, documenting, and providing care for this patient, excluding time spent in the performance of separately billed services or time spent by another provider/QHP. Stevie Ambriz MD
[2024-10-02] MEDS ORDERED: LIDOCAINE 5% 1 PATCH TD PRN (20:27)
[2024-10-02] MEDS ORDERED: ALBUT/IPRATROP 3MG/0.5MG NEB 3 ML VIAL NEB PRN (20:27)
--- NOTE | 2024-10-02 21:07 | Ultrasound Report ---
Exam(s): US VENOUS BILATERAL LOWER EXTREMITIES EXAM: US Duplex Bilateral Lower Extremities Veins CLINICAL HISTORY: Reason for exam: elevated d dimer, r/o DVT. TECHNIQUE: Real-time duplex ultrasound scan of the bilateral lower extremity veins integrating B-mode two-dimensional vascular structure, Doppler spectral analysis, color flow Doppler imaging and compression. COMPARISON: No relevant prior studies available. FINDINGS: Right deep veins: Unremarkable. The visualized deep veins of the right lower extremity are compressible with color flow. No visualized thrombus. Right superficial veins: Unremarkable. Left deep veins: Unremarkable. The visualized deep veins of the left lower extremity are compressible with color flow. No visualized thrombus. Left superficial veins: Unremarkable. No visualized thrombus in the GSV. Soft tissues: Andrews's cyst on the left measuring 2.2 x 1.8 x 1.4 cm. IMPRESSION: 1. No DVT within the bilateral lower extremities. 2. Andrews's cyst on the left measuring 2.2 x 1.8 x 1.4 cm. Electronically signed by: Jordan Ramey MD 10/02/24 21:06 PM
[2024-10-02] MEDS: SODIUM CHLORIDE 0.9% 1,000 ML IV SCH (21:18)
[2024-10-02] MEDS: DOXYCYCLINE HYCLATE 100 MG CAP PO SCH (21:19)
[2024-10-02] MEDS: HEPARIN SOD 5,000 UNIT/0.5 ML VIAL SQ SCH (21:19)
[2024-10-02] MEDS: REMOVE LIDODERM PATCH SCH (21:20)
[2024-10-02] MEDS: ACETAMINOPHEN 500 MG TAB PO SCH (21:28)
[2024-10-02] MEDS: ALUMINUM/MAGNESIUM/SIMETH (MAALOX MAX) 30 ML UDC PO PRN (21:39)
[2024-10-03] MEDS: CEFEPIME 2000MG 2,000 MG/20 ML SYR IV SCH (01:25)
[2024-10-03 06:36] LABS: Hematocrit (blood only) 37.4 % (42.0-52.0); Hemoglobin 12.5 g/dl (14.0-18.0); Mean Corpuscular Hemoglobin 31.3 pg (25.0-34.0); Mean Corpuscular Volume 93.7 fL (80.0-100.0); Platelet Count 148 K/uL (130-400); RDW Standard Deviation 47.7 fL (36.4-46.3); Red Blood Count 3.99 M/uL (4.70-6.10); White Blood Count 7.35 K/ul (4.8-10.8)
[2024-10-03 07:06] LABS: Anion Gap 6.0 (3-11); Blood Urea Nitrogen 16.0 mg/dl (6-23); Calcium 8.0 mg/dl (8.6-10.3); Carbon Dioxide 24.0 mmol/L (21-32); Chloride 109.0 mmol/L (98-107); Creatinine Clr Calc Pharmacy 70.2 ml/min; Glucose 99.0 mg/dl (70-99(Fasting)); Potassium 3.6 mmol/L (3.5-5.1); Sodium 139.0 mmol/L (136-145)
--- NOTE | 2024-10-03 08:25 | Pulmonary Consultation ---
Date of Consultation October 03, 2024 Assessment & Plan (1) SOB (shortness of breath): (2) Fall: (3) ILD (interstitial lung disease): (4) Abnormal chest CT: Plan 78-year-old male present to the hospital with complaints of fever and shortness of breath Past medical history: Dyslipidemia, coronary artery disease s/p stenting 2015, osteoarthritis Pulmonary consulted for hypoxia and abnormal chest CT CT chest 10/02/2024 personally reviewed: Increased reticular marking appreciated on the periphery of the upper and lower lobes More predominant in the lower lobes Patchy opacities bilateral lower lobes inquiring more towards atelectasis No significant mediastinal lymphadenopathy Doppler bilateral lower extremity 10/02/2024: Negative for DVT, Andrews's cyst on the left 2.2 x 1.8 x 1.4 cm --Abnormal chest CT with ILD No personal family history of any autoimmune disease like lupus, sarcoid, Sjogren's, rheumatoid No Raynaud's Only [id number] smoking history, quit in 1975. 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 in [place] Respiratory panel negative for COVID-19, influenza A/B as well as RSV on 10/02/2024 Procalcitonin 0.07 Plan: Patient's D-dimer is likely elevated because of the fall that he had 3 days ago Given that he is saturating 97% on room air without any respiratory complaints the probability of pulmonary emboli is very low especially with Doppler being negative There is some patchy opacities in the lower lobe which could be atelectasis, okay to give atypical coverage with doxycycline or azithromycin for 5 days Autoimmune workup will be ordered today for the interstitial lung disease appreciated on the CAT scan of the chest As an outpatient he will benefit from pulmonary function test as well as HRCT Recommend incentive spirometry All questions and queries of the patient were answered in depth I spent more than 75 minutes looking in the chart, images, discussing the plan of care with the patient, RN as well as primary team Please note the above document was generated using voice recognition software. It may contain grammatical, syntax or spelling errors.Any formal questions or concerns about the content, text or information contained within the body of this dictation should be directly addressed to the provider for clarification. History of Present Illness Attending Physician: Lucio Wilkinson MD History of Present Illness 78-year-old male present to the hospital with complaints of fever and shortness of breath Past medical history: Dyslipidemia, coronary artery disease s/p stenting 2016, osteoarthritis Pulmonary consulted for hypoxia and abnormal chest CT I was given a call late last evening 10/02/[address] Ambriz to briefly discuss the patient's case from the ER At the time of examination patient was saturating 97% on room air He was not in respiratory distress He fell from a 3 step ladder approximately 3 days ago which was a mechanical fall. He has been complaining of some shortness of breath in the recent past, denies any chest pain on taking deep breath. Subjective chills but no fever. Denies any dysuria, no diarrhea. Has been coughing up daily and bringing up clear phlegm. Denies any hemoptysis time No personal family history of any autoimmune disease like lupus, sarcoid, Sjogren's, rheumatoid No Raynaud's Social history: Only [id number] smoking history, quit in 1975. 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 No birds or poultry nearby Allergies: No seasonal allergies. No personal or family history of asthma No history of lung cancer in the family Allergies Allergy/AdvReac Type Severity Reaction Status Date / Time tramadol AdvReac Intermediate DIARHHEA Verified 10/02/24 18:00 morphine AdvReac Unknown HALLUCINATI Verified 10/02/24 18:00 ONS Home Medications Medication Instructions Recorded Confirmed Type aluminum-mag hydroxide-simethicone 10 ml PO UD PRN Acid Reflux 10/02/24 10/02/24 History 200 mg-200 mg-20 mg/5 mL oral susp aspirin 81 mg tablet,delayed 81 mg PO QAM 10/02/24 10/02/24 History release omeprazole 20 mg tablet,delayed 20 mg PO QAM 10/02/24 10/02/24 History release rosuvastatin 5 mg tablet 5 mg PO QAM 10/02/24 10/02/24 History Patient History Medical History Chest pain Depression Myocardial infarction "S/P 3 stents in 2009, [place] CAD is caused by exposure to agent orange in [place] " Broken ribs Separation of AC joint, type 1 Primary osteoarthritis, right shoulder No pertinent past medical history Surgical History H/O hernia repair S/P cataract surgery H/O knee surgery History of coronary artery stent placement Social History (Updated 10/02/24 @ 19:08 by FRANKLIN Perez) Smoking Status: Never smoker Second Hand Exposure: No; Do You Dip or Chew Tobacco: No; Tobacco Cessation Education Requested by Patient: No Hx Alcohol Use: No Hx Substance Use: No Preferred Language: Yoruba Communication Ability: Effective Jewelry Appraiser Required: No Beliefs That Will Affect Care: None Current Living Situation: Spouse Other Information That Helps Us Care for You: No Feels Safe at Home: Yes Safety Concerns: Feels Safe At This Time Assistive Devices: None Review of Systems 2 Review of Systems: All systems reviewed & are unremarkable except as noted in HPI & below Physical Exam 2 Physical Exam: Constitutional: No acute distress HEENT: EOMI, PERRLA, hard to hear Respiratory system: Good air entry bilaterally, no wheeze, no rhonchi, positive Velcro-like crackles appreciated bilaterally more on the right side CVS: S1-S2 positive, no murmurs or gallops Abdomen: Soft, nontender, nondistended, positive bowel sounds x4 Extremities: +2 pulses bilaterally radialis/ dorsalis pedis, no cyanosis, no edema Neuro: Awake alert oriented x3 Psych: Normal mood and affect G/U: No Andre Skin: no rashes, warm and dry Lymphatic: no cervical or axillary lymphadenopathy Results & Data Results & Data Vital Signs (Past 12 Hours) Vital Signs Temp Pulse Pulse Resp BP BP Pulse Ox 10/03/24 07:35 36.9 C 68 16 113/68 91 10/03/24 03:10 36.3 C L 67 16 95/59 L 93 10/02/24 22:53 36.8 C 72 16 111/59 L 93 10/02/24 21:40 74 10/02/24 20:34 73 10/02/24 20:27 36.7 C 74 18 114/67 97 10/02/24 20:20 10/02/24 20:20 36.7 C 74 18 114/67 97 O2 Del Method O2 Flow Rate 10/03/24 07:35 Room Air 10/03/24 03:10 Room Air 10/02/24 22:53 Nasal Cannula 1 10/02/24 21:40 10/02/24 20:34 10/02/24 20:27 Nasal Cannula 1.5 10/02/24 20:20 Nasal Cannula 1.5 10/02/24 20:20 Nasal Cannula 1.5 Laboratory Results 10/03/24 05:22 10/03/24 05:22 PG Care Time/CCT Total # of Minutes Spent Total Time Spent with Patient: Total time spent is greater than 50% in coordination of care (as documented) at patient's floor/unit and/or counseling patient: Coding Level of Care Code 44372 INT INP/OBS CARE 375MIN Diagnoses SOB (shortness of breath) R06.02 Fall W19.XXXA ILD (interstitial lung disease) J84.[address] R93.89
[2024-10-03 08:52] LABS: Creatine Kinase 54.0 U/L (30-223)
--- NOTE | 2024-10-03 09:27 | Magnetic Resonance Report ---
MR thoracic spine wo con CLINICAL HISTORY: T9 fracture, evaluate posterior ligaments/facets COMPARISON STUDY: CT scan yesterday FINDINGS: There is motion artifact. There is an acute nondisplaced fracture at the T2 vertebral body with minimal height loss at the supe rior endplate. There is an acute nondisplaced mildly oblique predominantly horizontal oriented fractu re from the anterior cortex of the T9 vertebral body extending posteriorly to the right facet and int o the posterior spinous process. There is no retropulsion. No subluxation. No other fracture or sublu xation seen at the thoracic spine. There is increased T2 signal within the posterior interspinous ligament at T8-9 and T9-10 consistent with strain/partial tear. There is mild increased uptake in the adjacent soft tissues consistent with edema. No evidence of ligamentous disruption seen otherwise. No epidural hematoma. Thoracic spinal c ord has normal signal and contour. There are mild diffuse degenerative changes. No significant centra l canal or neural foraminal narrowing seen. IMPRESSION: 1. Acute nondisplaced fractures at T2 and T9. 2. Strain/partial tear at the posterior interspinous ligament at T8-9 and T9-10. 3. Otherwise as described. ACT 112: Negative or not required by law. Electronically signed by: Rishabh Diaz M.D. 10/03/2024 9:25 AM
[2024-10-03] MEDS: ROSUVASTATIN CALCIUM 5 MG TAB PO SCH (09:28)
[2024-10-03] MEDS: ASPIRIN 81 MG ECTAB PO SCH (09:29)
--- NOTE | 2024-10-03 11:52 | Orthopedic Consultation ---
Date of Service October 03, 2024 Assessment & Plan (1) Fracture of thoracic spine: * Case/imaging reviewed and discussed with Dr Cuellar * Discussed closed management of T9 fracture MRI reviewed * TLSO brace ordered, to be worn at all times * Weightbearing thoracolumbar x-rays once brace has been placed * Recommend PT/OT for mobilization, no restrictions * Disposition: Home * Daily treatment: Physical Therapy/ Occupational Therapy per protocol * Weight bearing status: WBAT in brace * Pain control * Remainder care per primary team * Will review weightbearing images once obtained, as long as there is no displacement of the fracture patient wishes to discharge home with close follow-up in the office on Sunday History of Present Illness Reason for Consultation: T9 fracture Requesting Physician: . Attending Physician: Lucio Wilkinson MD .Patient is a 78 y/o male with mid-back pain. PMH including CAD, GERD, IA. Presents to hospital with mid-back and rib pain. Per patient earlier this week patient was working on a small stepladder when he lost his balance and fell landing on a elevated bathroom curb, landing directly on his side. Presented to ED earlier in the week, chest x-ray negative for displaced fracture at that time. Due to ongoing flank pain, mid back pain, patient returned to ED for further evaluation. Current workup including CT thoracic and lumbar spine demonstrating fracture of T9 osteophyte. Admitted to medical team for pain control, orthopedics consulted for management recommendations. At time of exam patient sitting comfortably in bed, no acute distress. Endorses moderate pain of the mid back that increases with rotation and bending movements. Denies numbness of bilateral upper extremity, bilateral lower extremity. No changes in bowel or bladder function. No reported weakness of bilateral lower extremity. No assistive device needed at baseline. Allergies Allergy/AdvReac Type Severity Reaction Status Date / Time tramadol AdvReac Intermediate DIARHHEA Verified 10/02/24 18:00 morphine AdvReac Unknown HALLUCINATI Verified 10/02/24 18:00 ONS Home Medications Medication Instructions Recorded Confirmed Type aluminum-mag hydroxide-simethicone 10 ml PO UD PRN Acid Reflux 10/02/24 10/02/24 History 200 mg-200 mg-20 mg/5 mL oral susp aspirin 81 mg tablet,delayed 81 mg PO QAM 10/02/24 10/02/24 History release omeprazole 20 mg tablet,delayed 20 mg PO QAM 10/02/24 10/02/24 History release rosuvastatin 5 mg tablet 5 mg PO QAM 10/02/24 10/02/24 History Past Med/Surg History Problem List (Updated 10/03/24 @ 13:29 by Wisam Cuellar MD) Fracture of thoracic spine (Acute) Chest wall contusion (Acute) Pneumonia (Acute) SOB (shortness of breath) (Acute) Fall (Acute) Hypoxia (Acute) Hypoxia Coronary artery disease Fall (Acute) Rib pain on right side (Acute) GERD (gastroesophageal reflux disease) (Chronic) Medical History Chest pain Depression Myocardial infarction "S/P 3 stents in 2009, in [place] CAD is caused by exposure to agent orange in [place] " Broken ribs Separation of AC joint, type 1 Primary osteoarthritis, right shoulder No pertinent past medical history Surgical History H/O hernia repair S/P cataract surgery H/O knee surgery History of coronary artery stent placement Social History (Updated 10/02/24 @ 19:08 by FRANKLIN Perez) Smoking Status: Never smoker Second Hand Exposure: No; Do You Dip or Chew Tobacco: No; Tobacco Cessation Education Requested by Patient: No Hx Alcohol Use: No Hx Substance Use: No Preferred Language: Tamazight Communication Ability: Effective Computer Mechanic Required: No Beliefs That Will Affect Care: None Current Living Situation: Spouse Other Information That Helps Us Care for You: No Feels Safe at Home: Yes Safety Concerns: Feels Safe At This Time Assistive Devices: Glasses and Hearing Aid - Bilateral Review of Systems All systems reviewed & are unremarkable except as noted in HPI & below. Physical Exam . * General: Alert and oriented, no acute distress * Constitutional: well-developed, well-nourished. * Respiratory: Normal respiratory effort, no distress * Gastrointestinal: No tenderness to palpation, no rigidity or guarding. * Skin: No rash or lesion. * Neurologic: Grossly normal * Musculoskeletal: Thoracic region with no obvious deformity or overlying skin changes. No other visual abnormality noted throughout the lower extremities. Mild midline TTP of the T9 area, local paraspinal spasm and tenderness. Otherwise no tenderness of the lumbar spine, paraspinal region, bilateral buttock, bilateral lower extremities. Mild pain with ROM thoracic rotation, flexion/extension. AROM hip flexion, knee extension, ankle plantar/dorsiflexion intact bilaterally, strength 5/5 throughout. Sensation intact plantar/dorsal foot. Brisk capillary refill. Results & Data Results & Data Laboratory Results . Diagnostic Findings . Chest X-Ray 10/02/24 15:38 Chest radiograph, one view History: Sepsis Comparison: 02/20/2015 Findings: Single AP view of the chest performed. No focal consolidation or pleural effusion. No pneumothorax. The cardiomediastinal silhouette is within normal limits. Normal pulmonary vascularity. No evidence for lymphadenopathy. No visualized bony or soft tissue abnormality. Impression: Normal chest radiograph Electronically signed by Joel Sam 10-02-2024 4:36 PM Abdomen/Pelvis CT 10/02/24 15:49 EXAMINATION: CT of the chest, abdomen and pelvis, and the thoracic and lumbar spine performed after the administration of IV contrast TECHNIQUE: Helical CT images from the lung apices through the symphysis pubis were obtained with contrast. Coronal and sagittal reformatted images were generated at a workstation for further assessment. Dose reduction techniques were achieved by using automatic exposure control and/or adjustment of mA and/or kV according to patient size and/or use of iterative reconstruction technique. COMPARISON: None HISTORY: Trauma FINDINGS: Lines and tubes: None Mediastinum/Neck Base: No thyroid nodules. Central tracheobronchial tree is patent. Heart size is normal. No pericardial effusion. Normal thoracic vasculature. No thoracic lymphadenopathy. Lungs: No consolidation. No pleural effusion or pneumothorax. Mild basilar and peripheral interstitial changes, without honeycombing, suggesting interstitial lung disease. Liver: No suspicious liver lesions. Portal veins appear patent. Gallbladder: Small layering calcified gallstones. No evidence of acute cholecystitis. Spleen: Normal size. Pancreas: No suspicious pancreatic lesions. The pancreatic duct is not dilated. Adrenal glands: No adrenal nodules. Kidneys: No hydronephrosis or obstructing renal stones. Bladder / Pelvic organs: The prostate gland is enlarged, with a transverse diameter of 6.7 cm.. Bowel: No bowel obstruction. No abnormal bowel wall thickening. The appendix is not definitely seen. Left colonic diverticulosis without diverticulitis. The cecum appears displaced into the left mid abdomen, suggesting a mobile cecum. Lymph nodes: No retroperitoneal, mesenteric, or pelvic lymphadenopathy. Peritoneum / Retroperitoneum: No free fluid or air within the abdomen. Vessels: No infrarenal aortic aneurysm. Moderate aortoiliac calcification. Bones and soft tissues: Degenerative changes of the spine. At the T9 level, there is a thin, horizontally oriented fracture line extending through the anterior vertebral body cortex, involving a partially circumferential osteophyte. No visualized further extension into the mid or posterior vertebral body. No fracture or traumatic subluxation of the lumbar spine. There are prominent anterior bridging osteophytes. Severe L5-S1 degenerative disc height loss. IMPRESSION: 1. A thin fracture line extends horizontally across a partially circumferential osteophyte of the T9 vertebral body. There is no extension into the mid or posterior vertebral body. 2. No other acute finding the chest, abdomen or pelvis, or of the lumbar spine. 3. 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 Electronically signed by Joel Sam 10-02-2024 5:[address] 10/02/24 15:49 EXAMINATION: CT of the chest, abdomen and pelvis, and the thoracic and lumbar spine performed after the administration of IV contrast TECHNIQUE: Helical CT images from the lung apices through the symphysis pubis were obtained with contrast. Coronal and sagittal reformatted images were generated at a workstation for further assessment. Dose reduction techniques were achieved by using automatic exposure control and/or adjustment of mA and/or kV according to patient size and/or use of iterative reconstruction technique. COMPARISON: None HISTORY: Trauma FINDINGS: Lines and tubes: None Mediastinum/Neck Base: No thyroid nodules. Central tracheobronchial tree is patent. Heart size is normal. No pericardial effusion. Normal thoracic vasculature. No thoracic lymphadenopathy. Lungs: No consolidation. No pleural effusion or pneumothorax. Mild basilar and peripheral interstitial changes, without honeycombing, suggesting interstitial lung disease. Liver: No suspicious liver lesions. Portal veins appear patent. Gallbladder: Small layering calcified gallstones. No evidence of acute cholecystitis. Spleen: Normal size. Pancreas: No suspicious pancreatic lesions. The pancreatic duct is not dilated. Adrenal glands: No adrenal nodules. Kidneys: No hydronephrosis or obstructing renal stones. Bladder / Pelvic organs: The prostate gland is enlarged, with a transverse diameter of 6.7 cm.. Bowel: No bowel obstruction. No abnormal bowel wall thickening. The appendix is not definitely seen. Left colonic diverticulosis without diverticulitis. The cecum appears displaced into the left mid abdomen, suggesting a mobile cecum. Lymph nodes: No retroperitoneal, mesenteric, or pelvic lymphadenopathy. Peritoneum / Retroperitoneum: No free fluid or air within the abdomen. Vessels: No infrarenal aortic aneurysm. Moderate aortoiliac calcification. Bones and soft tissues: Degenerative changes of the spine. At the T9 level, there is a thin, horizontally oriented fracture line extending through the anterior vertebral body cortex, involving a partially circumferential osteophyte. No visualized further extension into the mid or posterior vertebral body. No fracture or traumatic subluxation of the lumbar spine. There are prominent anterior bridging osteophytes. Severe L5-S1 degenerative disc height loss. IMPRESSION: 1. A thin fracture line extends horizontally across a partially circumferential osteophyte of the T9 vertebral body. There is no extension into the mid or posterior vertebral body. 2. No other acute finding the chest, abdomen or pelvis, or of the lumbar spine. 3. 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 Electronically signed by Joel Sam 10-02-2024 5:[address] 10/02/24 15:49 EXAMINATION: CT of the chest, abdomen and pelvis, and the thoracic and lumbar spine performed after the administration of IV contrast TECHNIQUE: Helical CT images from the lung apices through the symphysis pubis were obtained with contrast. Coronal and sagittal reformatted images were generated at a workstation for further assessment. Dose reduction techniques were achieved by using automatic exposure control and/or adjustment of mA and/or kV according to patient size and/or use of iterative reconstruction technique. COMPARISON: None HISTORY: Trauma FINDINGS: Lines and tubes: None Mediastinum/Neck Base: No thyroid nodules. Central tracheobronchial tree is patent. Heart size is normal. No pericardial effusion. Normal thoracic vasculature. No thoracic lymphadenopathy. Lungs: No consolidation. No pleural effusion or pneumothorax. Mild basilar and peripheral interstitial changes, without honeycombing, suggesting interstitial lung disease. Liver: No suspicious liver lesions. Portal veins appear patent. Gallbladder: Small layering calcified gallstones. No evidence of acute cholecystitis. Spleen: Normal size. Pancreas: No suspicious pancreatic lesions. The pancreatic duct is not dilated. Adrenal glands: No adrenal nodules. Kidneys: No hydronephrosis or obstructing renal stones. Bladder / Pelvic organs: The prostate gland is enlarged, with a transverse diameter of 6.7 cm.. Bowel: No bowel obstruction. No abnormal bowel wall thickening. The appendix is not definitely seen. Left colonic diverticulosis without diverticulitis. The cecum appears displaced into the left mid abdomen, suggesting a mobile cecum. Lymph nodes: No retroperitoneal, mesenteric, or pelvic lymphadenopathy. Peritoneum / Retroperitoneum: No free fluid or air within the abdomen. Vessels: No infrarenal aortic aneurysm. Moderate aortoiliac calcification. Bones and soft tissues: Degenerative changes of the spine. At the T9 level, there is a thin, horizontally oriented fracture line extending through the anterior vertebral body cortex, involving a partially circumferential osteophyte. No visualized further extension into the mid or posterior vertebral body. No fracture or traumatic subluxation of the lumbar spine. There are prominent anterior bridging osteophytes. Severe L5-S1 degenerative disc height loss. IMPRESSION: 1. A thin fracture line extends horizontally across a partially circumferential osteophyte of the T9 vertebral body. There is no extension into the mid or posterior vertebral body. 2. No other acute finding the chest, abdomen or pelvis, or of the lumbar spine. 3. 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 Electronically signed by Joel Sam 10-02-2024 5:[address] 10/02/24 15:49 EXAMINATION: CT of the chest, abdomen and pelvis, and the thoracic and lumbar spine performed after the administration of IV contrast TECHNIQUE: Helical CT images from the lung apices through the symphysis pubis were obtained with contrast. Coronal and sagittal reformatted images were generated at a workstation for further assessment. Dose reduction techniques were achieved by using automatic exposure control and/or adjustment of mA and/or kV according to patient size and/or use of iterative reconstruction technique. COMPARISON: None HISTORY: Trauma FINDINGS: Lines and tubes: None Mediastinum/Neck Base: No thyroid nodules. Central tracheobronchial tree is patent. Heart size is normal. No pericardial effusion. Normal thoracic vasculature. No thoracic lymphadenopathy. Lungs: No consolidation. No pleural effusion or pneumothorax. Mild basilar and peripheral interstitial changes, without honeycombing, suggesting interstitial lung disease. Liver: No suspicious liver lesions. Portal veins appear patent. Gallbladder: Small layering calcified gallstones. No evidence of acute cholecystitis. Spleen: Normal size. Pancreas: No suspicious pancreatic lesions. The pancreatic duct is not dilated. Adrenal glands: No adrenal nodules. Kidneys: No hydronephrosis or obstructing renal stones. Bladder / Pelvic organs: The prostate gland is enlarged, with a transverse diameter of 6.7 cm.. Bowel: No bowel obstruction. No abnormal bowel wall thickening. The appendix is not definitely seen. Left colonic diverticulosis without diverticulitis. The cecum appears displaced into the left mid abdomen, suggesting a mobile cecum. Lymph nodes: No retroperitoneal, mesenteric, or pelvic lymphadenopathy. Peritoneum / Retroperitoneum: No free fluid or air within the abdomen. Vessels: No infrarenal aortic aneurysm. Moderate aortoiliac calcification. Bones and soft tissues: Degenerative changes of the spine. At the T9 level, there is a thin, horizontally oriented fracture line extending through the anterior vertebral body cortex, involving a partially circumferential osteophyte. No visualized further extension into the mid or posterior vertebral body. No fracture or traumatic subluxation of the lumbar spine. There are prominent anterior bridging osteophytes. Severe L5-S1 degenerative disc height loss. IMPRESSION: 1. A thin fracture line extends horizontally across a partially circumferential osteophyte of the T9 vertebral body. There is no extension into the mid or posterior vertebral body. 2. No other acute finding the chest, abdomen or pelvis, or of the lumbar spine. 3. 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 Electronically signed by Joel Sam 10-02-2024 5:16 PM Venous Doppler Study 10/02/24 19:36 Exam(s): US VENOUS BILATERAL LOWER EXTREMITIES EXAM: US Duplex Bilateral Lower Extremities Veins CLINICAL HISTORY: Reason for exam: elevated d dimer, r/o DVT. TECHNIQUE: Real-time duplex ultrasound scan of the bilateral lower extremity veins integrating B-mode two-dimensional vascular structure, Doppler spectral analysis, color flow Doppler imaging and compression. COMPARISON: No relevant prior studies available. FINDINGS: Right deep veins: Unremarkable. The visualized deep veins of the right lower extremity are compressible with color flow. No visualized thrombus. Right superficial veins: Unremarkable. Left deep veins: Unremarkable. The visualized deep veins of the left lower extremity are compressible with color flow. No visualized thrombus. Left superficial veins: Unremarkable. No visualized thrombus in the GSV. Soft tissues: Andrews's cyst on the left measuring 2.2 x 1.8 x 1.4 cm. IMPRESSION: 1. No DVT within the bilateral lower extremities. 2. Andrews's cyst on the left measuring 2.2 x 1.8 x 1.4 cm. Electronically signed by: Jordan Ramey MD 10/02/24 21:06 PM Thoracic Spine MRI 10/03/24 07:45 MR thoracic spine wo con CLINICAL HISTORY: T9 fracture, evaluate posterior ligaments/facets COMPARISON STUDY: CT scan yesterday FINDINGS: There is motion artifact. There is an acute nondisplaced fracture at the T2 vertebral body with minimal height loss at the superior endplate. There is an acute nondisplaced mildly oblique predominantly horizontal oriented fracture from the anterior cortex of the T9 vertebral body extending posteriorly to the right facet and into the posterior spinous process. There is no retropulsion. No subluxation. No other fracture or subluxation seen at the thoracic spine. There is increased T2 signal within the posterior interspinous ligament at T8-9 and T9-10 consistent with strain/partial tear. There is mild increased uptake in the adjacent soft tissues consistent with edema. No evidence of ligamentous disruption seen otherwise. No epidural hematoma. Thoracic spinal cord has normal signal and contour. There are mild diffuse degenerative changes. No significant central canal or neural foraminal narrowing seen. IMPRESSION: 1. Acute nondisplaced fractures at T2 and T9. 2. Strain/partial tear at the posterior interspinous ligament at T8-9 and T9-10. 3. Otherwise as described. ACT 112: Negative or not required by law. Electronically signed by: Rishabh Diaz M.D. 10/03/2024 9:25 AM PG Care Time/CCT Total # of Minutes Spent Total Time Spent with Patient: Total time spent is greater than 50% in coordination of care (as documented) at patient's floor/unit and/or counseling patient: Supervising Physician Co-Signing Physician Notes MRI of the thoracic spine was obtained today and interpreted personally. Mild T2 acute compression fracture without significant retropulsion or signs of instability. No canal canal compromise throughout the entire thoracic spine, no evidence of intracanalicular hematoma. No signs of cord compression. MRI was obtained to better evaluate the fracture pattern at T9. Fracture line extends transversely through the T9 vertebral body, reaches close to the posterior cortex at T9. There is edema in the facet joint on the right side no definitive fracture line. Edema within the interspinous ligament at T8-9, PLL, ligamentum flavum and facet capsules appear intact. MRI was compared to the thoracic CT scan. On review there is no definitive fracture line extending into the facet joints on CT, posterior cortex appears to be grossly intact. No spinous process gapping. Plan: I have discussed the nature of the patient's fracture especially in the setting of ankylosing spondylitis. The posterior longitudinal ligament, ligamentum flavum and facet capsules appear to be intact, possible partial tear or strain of the interspinous ligament at T8-9. I do not see any definitive fracture lines extending into the joints. Patient has been ambulating with his fracture for 2 days without any stabilization. I discussed in detail that the patient is on the borderline of requiring instrumented fusion for this fracture. Given the stability of the ligaments and the fact that it has not displaced in the last few days with ambulation, I discussed that it is an option to obtain upright images in the brace and follow- up closely in the office at the beginning of next week. We also discussed keeping him in the hospital another day and obtaining repeat x-rays versus surgical stabilization. Patient states that he does not want surgery unless it is absolutely required, would prefer to go home with the brace. I explained that any fracture movement could lead to spinal cord injury which could include paralysis, loss of bowel bladder control or other neurologic deficits. Patient voiced understanding and understands the warning signs of when to return to the emergency room immediately such as worsening back pain or development of any neurologic symptoms in the lower extremities. I will review the weightbearing images once obtained. Wisam Cuellar MD [place] [address] IN/OBS CONSULT LVL 4,60M Patient Type New Medical Decision Making Low Complexity Diagnoses Other closed fracture of ninth thoracic vertebra with routine healing, sub sequent encounter S22.078D Encounter type: subsequent encounter Fracture healing: with routine healing Fracture morphology: other fracture Fracture type: closed Thoracic vertebra fracture level: T9 (1) Fracture of thoracic spine Encounter type: subsequent encounter Fracture healing: with routine healing Fracture morphology: other fracture Fracture type: closed Thoracic vertebra fracture level: T9 Qualified Code(s): S22.078D - Other fracture of T9-T10 vertebra, subsequent encounter for fracture with routine healing
[2024-10-03] MEDS: OPTIRAY 320 125ml IV ONE (15:20)
--- NOTE | 2024-10-03 15:22 | XRay Report ---
XR thoracolumbar spine 2V CLINICAL HISTORY: weightbearing in brace, T9 fx COMPARISON STUDY: Lumbar and thoracic spine CTs October 02, 2024. Thoracic spine MRI October 03, 2024. FINDINGS: Alignment of the mid to lower thoracic and lumbar spines is an anatomic. Extensive anterior osteophytosis is noted. Vertebral body heights are maintained. The acute T9 vertebral body fracture on CT and MRI is not well-visualized by radiography. No displaced fractures are identified. IMPRESSION: 1. Anatomic alignment of the mid to lower thoracic and lumbar spines. 2. Acute T9 vertebral body fracture not well-visualized by radiography. 3. Extensive anterior osteophytosis of the thoracic spine. ACT 112: Negative or not required by law. Electronically signed by: Dino Quinones M.D. 10/03/2024 3:20 PM
--- NOTE | 2024-10-03 15:44 | CT Scan Report ---
CT ANGIOGRAM OF THE CHEST CLINICAL HISTORY: Elevated d-dimer. Evaluate for pulmonary embolus. COMPARISON STUDY: Chest CT February 19, 2015 and October 02, 2024. TECHNIQUE: Following the IV administration of 119 cc of Optiray 320, CT angiogram of the chest was pe rformed from the upper abdomen to the thoracic inlet utilizing the pulmonary embolus protocol. Images are reviewed in the axial, sagittal, and coronal planes. 3-D MIPS images are created and assessed. I V contrast was administered without complication. A dose lowering technique was utilized adhering to the principles of ALARA. CT DOSE: 892.09 mGy.cm FINDINGS: No pulmonary emboli are identified although subsegmental pulmonary arteries are suboptimall y assessed due to respiratory motion. There is no thoracic aortic dissection. Size of the heart is no rmal. There is extensive coronary artery calcification. A moderate sized hiatal hernia is present. Th ere is no pneumothorax. There are trace bilateral pleural effusions. Mild interlobular septal thicken ing is present. Subpleural reticulation is greatest within the lower lobes. There is no honeycombing. No bronchiectasis. Mild loss of height of the superior endplate of T2 with buckling of the anterior cortex is noted. The acute nondisplaced T9 vertebral body fracture is not well visualized on this exa mination. This is better shown on CT of October 02, 2024 and MRI performed earlier today. There are nume neva gallstones within the gallbladder. IMPRESSION: 1. No pulmonary emboli identified although subsegmental pulmonary arteries suboptimally assessed due to respiratory motion. 2. Suspected mild interstitial pulmonary edema. Trace bilateral pleural effusions. 3. Lower lobe predominant subpleural reticulation which favors interstitial lung disease. 4. Acute T2 and T9 fractures better depicted on MRI performed earlier today. 5. Extensive coronary artery calcification. ACT 112: Negative or not required by law. Electronically signed by: Dino Quinones M.D. 10/03/2024 3:42 PM
--- NOTE | 2024-10-03 16:43 | Communication Note ---
Date of Service: October 03, 2024 By CMS guidelines, a determination that the admission or continued stay is not medically necessary has been made by a member of the UR committee and a physi chilo for this hospital stay, therefore a Code 44 will be completed and the Inpatient admission will be changed to outpatient.
--- NOTE | 2024-10-03 16:49 | Discharge Summary ---
Date of Service October 03, 2024 Admission HPI Per Admitting Provider 78 year old male with PMH significant for hyperlipidemia, CAD s/p stent x3 (2016), and osteoarthritis who presented to the ED on 10/02/2024 with fevers and SOB. He reports that he fell off a step-stool two days ago and landed on marble on his right side. He was evaluated in our ED and had x-rays which were negative and he was discharged home on pain medicine. Yesterday, he developed SOB where he was winded after going up one flight of steps, which is unusual for him. He was also very chilled overnight and slept in a sweatshirt and sweatpants. He did not take his temperature. He was concerned about his SOB, which is why he presented to the ED today. He denies cough, cold symptoms, chest pain, abdominal pain, N/V/D, weakness and fatigue. Notes he did get a bite on his back when he was walking his dog the other day. Denies sick contacts. Reports he is still having a lot of rib and back pain after the fall. Rates 4/10 at rest and higher with movements. Admission Exam Per Admitting Provider General/Psych: WD/WN, sitting up in bed, NAD, conversing easily, on 2L NC Head: normocephalic, atraumatic Eyes: normal inspection, PERRL, conjunctivae pink ENT: external ear and nose normal, oropharynx normal Neck: normal visual inspection, trachea midline Respiratory: normal respiratory effort, lungs clear to auscultation, rales in bilateral bases, no accessory muscle use Cardiovascular: regular rate and rhythm, no murmur/rub/gallop, no JVD Extremities: no cyanosis or clubbing, normal peripheral pulses, no BLE edema Abdomen/GI: normal bowel sounds, soft, nontender Neurologic/MSK: A+Ox3, motor strength 5/5, moves all extremities Skin: no rashes, normal color, warm and dry Principal Diagnosis Fracture of thoracic spine Hypoxia, SOB - Possible PNA vs PE vs 2/2 pain iso thoracic spine fracture Discharge Exam General/Psych: WD/WN, sitting up in bed, NAD, conversing easily, on RA Head: normocephalic, atraumatic Eyes: normal inspection, PERRL, conjunctivae pink ENT: external ear and nose normal, oropharynx normal Neck: normal visual inspection, trachea midline Respiratory: normal respiratory effort, lungs clear to auscultation, rales in bilateral bases, no accessory muscle use Cardiovascular: regular rate and rhythm, no murmur/rub/gallop, no JVD Extremities: no cyanosis or clubbing, normal peripheral pulses, no BLE edema Abdomen/GI: normal bowel sounds, soft, nontender Neurologic/MSK: A+Ox3, motor strength 5/5, moves all extremities Skin: no rashes, normal color, warm and dry Discharge Data Allergies Allergy/AdvReac Type Severity Reaction Status Date / Time tramadol AdvReac Intermediate DIARHHEA Verified 10/02/24 18:00 morphine AdvReac Unknown HALLUCINATI Verified 10/02/24 18:00 ONS Consultations 10/02/24 20:16 Consult Pulmonology Routine 10/02/24 20:27 Consult Orthopedic Spine Surgery Routine Ordered Studies 10/02/24 15:49 CT abd pelvis IV con only Stat CT chest diagnostic w con Stat CT lumbar spine w con Stat CT thoracic spine w con Stat 10/02/24 19:36 US venous doppler LE BI Stat 10/03/24 07:45 MRI Thoracic [MR thoracic spine wo con] Urgent 10/03/24 10:01 CT angio chest PE protocol Routine Hospital Course (1) Hypoxia: (2) SOB (shortness of breath): (3) Fall: (4) Fracture of thoracic spine: (5) Rib pain on right side: (6) Coronary artery disease: (7) GERD (gastroesophageal reflux disease): Plan Per prior attending with addendum: 78 year old male with PMH significant for hyperlipidemia, CAD s/p stent x3 (2016), and osteoarthritis who presented to the ED on 10/02/2024 with fevers and SOB. Hypoxia SOB Possible PNA Patient presented with fevers and SOB Hypoxic to 88% on RA in ED No leukocytosis, lactate WNL, procalcitonin negative UA unremarkable Blood cultures pending CXR, chest CT, abdominal CT without acute processes but noting interstitial lung disease Add D dimer, BNP, lyme screen for further work up of SOB and fevers Treat for CAP with cefepime and doxycycline Duonebs PRN, ISP, flutter valve Fall Rib pain on right side Fracture of thoracic spine Thoracic spine CT revealed A thin fracture line extends horizontally across a partially circumferential osteophyte of the T9 vertebral body. Consult orthospine surgery: appreciate recs Pain control with scheduled tylenol, lidocaine patch PRN, oxycodone PRN CAD s/p stent Continue baby aspirin and statin GERD Continue omeprazole and Mylanta PRN DVT Prophylaxis: SQ Heparin Code Status: FULL CODE - As per discussion at bedside with the patient. PCP: Lisbeth Villegas Disposition: admit to [facility] Addendum 10/03/2024: Patient was seen and examined at bedside as a follow-up of hypoxia likely in the setting of possible pneumonia versus pulmonary embolism vs secondary to pain. Patient is hemodynamically stable and is very insistent on going home today. Patient was agreeable for CTA chest today [discussed risks of nephropathy with contrast used during CTA chest]. CTA chest was negative for PE. Case was discussed with pulmonology, plan to discharge him with a close follow-up with pulmonology for ILD management/total of 5 days worth of doxycycline treatment. Case was also discussed with orthospine, patient aware to return to the ED immediately if he has any new neurological signs and symptoms as has been explained to him at bedside by myself and by orthospine. Patient's current imaging findings and plan of care were also discussed with patient's over the phone and given discharge instructions. Patient is being discharged with following instructions at the point of discharge: Follow-up with your primary care physician within a week time and likely you will need labs CBC/CMP/magnesium/phosphorus. As discussed at the bedside by myself and orthospine surgeon, do not bend, lift or twist. Utilize TLSO brace when out of bed and with activity. Follow up with orthospine coming Sunday for repeat XR Thoracolumbar spine/further evaluation. If any tingling/numbness/paraesthesias below thorax/abdomen level, any bowel or bladder incontinence or weakness below abdomen level please reach out to emergency immediately as has been discussed. You can use [id number] Tylenol for mild to moderate pain and over-the- counter 4% lidocaine patch for moderate to severe pain. If pain persisting/worsening, communicate with your orthospine or PCP office for further evaluation/management. You will be discharged on antibiotic to complete 5 days treatment for possible pneumonia. As discussed at the bedside, for your interstitial lung disease follow-up with pulmonology in 1 to 2 weeks time upon discharge. Take your medications as prescribed. Please make sure that you are able to get your medications today by calling your pharmacy before you leave the hospital so that your treatment continuity is not broken. By CMS guidelines, a determination that the admission or continued stay is not medically necessary has been made by a member of the Utilization Review committee and a physician for this hospital stay. Therefore, a Code 44 will be completed and the inpatient admission will be changed to outpatient. Home Health Attestation I certify that this patient is under my care and that I, or a physicians assistant track and field coach working with me, had a face to-face encounter that meets the home health [id number] encounter requirements with this patient. The encounter with the patient was in whole, or in part, for the following medical condition, which is the primary reason for home health care (list medical condition): I certify that, based on my findings, the following services are medically necessary home health services: My clinical findings support the need for the above services because: Further, I certify that my clinical findings support that this patient is homebound (i.e. absences from home require considerable and taxing effort and are for medical reasons or [employer] services or infrequently or of short duration when for other reasons) because: Certification for Home Health Services: Based on the above findings, I certify that this patient is confined to the home and needs intermittent fpc care, physical therapy and/or speech therapy or continues to need occupational therapy. The patient is under my care, and I have initiated the establishment of the plan of care. This patient will be followed by a physician who will periodically review the plan of care. Total Time Total Time Spent Total Time Spent (In Minutes): 45 Discharge Plan Discharge Items Patient Disposition: Home - Self-Care Reason For Visit: SOB Discharge Diagnosis: Fracture of thoracic spine Hypoxia, SOB - Possible PNA vs PE vs 2/2 pain iso thoracic spine fracture Condition on Discharge: Fair Activity: As commented below Non-emergency contact: Primary Care Provider Call non-emergency contact if: you have any medication questions, your symptoms worsen and your pain is not controlled Follow-up/Referrals: Wisam Cuellar MD [Surgeon] - Lisbeth Villegas ARNP [Primary Care Provider] - Diet: Heart Healthy Addtl Attending Provider Instructions: Follow-up with your primary care physician within a week time and likely you will need labs CBC/CMP/magnesium/phosphorus. As discussed at the bedside by myself and orthospine surgeon, do not bend, lift or twist. Utilize TLSO brace when out of bed and with activity. Follow up with orthospine coming Sunday for repeat XR Thoracolumbar spine/further evaluation. If any tingling/numbness/paraesthesias below thorax/abdomen level, any bowel or bladder incontinence or weakness below abdomen level please reach out to emergency immediately as has been discussed. You can use [id number] Tylenol for mild to moderate pain and [id number] 4% lidocaine patch for moderate to severe pain. If pain persisting/worsening, communicate with your orthospine or PCP office for further evaluation/management. You will be discharged on antibiotic to complete 5 days treatment for possible pneumonia. As discussed at the bedside, for your interstitial lung disease follow-up with pulmonology in 1 to 2 weeks time upon discharge. Take your medications as prescribed. Please make sure that you are able to get your medications today by calling your pharmacy before you leave the hospital so that your treatment continuity is not broken. Pending Studies at Discharge: Yes Stand-Alone Forms: [facility] Useful at Night, Smoking Cessation Medications and DC Order Prescriptions: New doxycycline hyclate 100 mg Capsule 100 mg PO BID 4 Days Qty: 8 0RF Continued aspirin [Aspirin Low-Strength] 81 mg Tablet,Delayed Release (Dr/Ec) 81 mg PO QAM alum-mag hydroxide-simeth [Mylanta] 200-200-20 mg/5 mL Suspension 10 ml PO UD PRN (Reason: Acid Reflux) Rx Instructions: administer between meals and at bedtime rosuvastatin 5 mg Tablet 5 mg PO QAM omeprazole 20 mg Tablet,Delayed Release (Dr/Ec) 20 mg PO QAM Discharge Orders: Discharge Order (Routine); Ordered 10/03/24 Ordered By: Lucio Wilkinson Admission Data Admit Date/Time: 10/02/24 19:02 Attending Provider: Lucio Wilkinson Admit Provider: Stevie Ambriz Primary Care Provider: Lisbeth Villegas Other Providers: Michael Leigh; Wisam Cuellar
[2024-10-03 17:53] LABS: Creatine Kinase 51.0 U/L (30-223)
--- NOTE | 2024-10-03 22:43 | Electrocardiogram Report ---
Test Reason : Blood Pressure : */* mmHG Vent. Rate : 93 BPM Atrial Rate : 93 BPM P-R Int : 168 ms QRS Dur : 100 ms QT Int : 348 ms P-R-T Axes : -8 -26 8 degrees QTcB Int : 432 ms Normal sinus rhythm Incomplete right bundle branch block Inferior infarct , age undetermined Abnormal ECG When compared with ECG of 20-Feb-2015 06:56, Vent. rate has increased by 31 bpm Criteria for Septal infarct are no longer Present Confirmed by Castillo Mcknight ([id number]) on 10/03/2024 10:42:50 PM Referred By: Megan Mireles Confirmed By: Castillo Mcknight
[2024-10-10 17:12] LABS: Alternaria Alternata IgG <13.6 mcg/mL (<13.6); Anti Nuclear Antibody Screen NEGATIVE (NEGATIVE); Anti-Neutrophil Antibody NONE DETECTED (NONE DETECTED); Chromatin Antibody <1.0 NEG AI (<1.0 NEG); Saccharopolyspora rectivir Ab NOT DETECTED (NOT DETECTED); Sm Antibody <1.0 NEG AI (<1.0 NEG); Thermoactinomyces candidus Ab NOT DETECTED (NOT DETECTED)
--- NOTE | 2024-11-05 07:04 | Coding Query ---
A supporting diagnosis is required for the test/procedure performed on this patient in order for us to be reimbursed by the patient's insurance. Please provide a supporting diagnosis for the following test/procedure listed below next to the test name. *If there is no additional diagnosis for this patient that would support the following test/procedure please document that below next to the test/procedure. Test(s)/Procedure(s) that require a supporting diagnosis: * 35069 VENOUS DOPPLER LE BILATERAL DIAGNOSIS: DATE OF SERVICE: 10/02/24 Thank you D[facility] Information Management Once completed, please kindly fax back to [phone] For questions please call [phone] [facility] CENT[facility]atherine
== END 2024-10-03 17:19 | disposition home or self-care (01) | DRG 193 ==
LOC: ED 15:17 → INTOOBSV 19:02 → SUATTDRO 19:02 → 2N 19:02